=== PATIENT | male | born 1930 | race Two or more races ===

== ENCOUNTER 2018-05-10 16:45 | Emergency (ER) | payer MEDICARE, MEDICAID ==
[~2018-05-10] VITALS: Ht 165.1 cm; Wt 77.1 kg
[2018-05-10 17:00] VITALS: BP 120/73
--- NOTE | 2018-05-10 17:10 | Emergency Room Report ---
History of Present Illness General Chief Complaint: Animal Bite Source: Patient Present Illness HPI patient is an 87-year-old male with no significant past medical history here complaining of pruritic rash on his upper and lower extremities for the past several days. Patient has already been to his primary doctor and has been diagnosed with mild mosquito bites. Patient denies pain, fever, chills, SOB, all other associated symptoms. Patient has been applying OTC hydrocortisone cream with minimal improvement. Denies painful rash. Denies exposure to any allergens. Pending crystal grower action for clearance of mosquitoes in the apartment series that he lives. Also his presents with similar symptoms. Allergies: Coded Allergies: No Known Allergies (Unverified , 05/10/18) Patient History Past Medical History: see triage record Past Surgical History: none Pertinent Family History: none Immunizations: UTD Reviewed Nursing Documentation: PMH: Agreed; PSxH: Agreed Nursing Documentation-PMH Past Medical History: No Stated History Review of Systems All Other Systems: negative except mentioned in HPI Physical Exam Vital Signs Date Time Temp Pulse Resp B/P (MAP) Pulse Ox O2 Delivery O2 Flow Rate FiO2 05/10/18 16:50 97.9 71 20 120/73 98 Room Air 97.9 Sp02 EP Interpretation: reviewed, normal General Appearance: normal inspection, well appearing, no apparent distress, alert, GCS 15 Head: normocephalic Eyes: bilateral eye normal inspection, bilateral eye PERRL ENT: normal ENT inspection, hearing grossly normal, normal pharynx Neck: normal inspection, full range of motion, supple Respiratory: normal inspection, chest non-tender, lungs clear, no rhonchi, no wheezing Cardiovascular #1: normal inspection, normal peripheral pulses, no edema, no murmur Gastrointestinal: normal inspection, normal bowel sounds, non tender, soft, no mass Rectal: deferred Genitourinary: deferred Musculoskeletal: normal inspection, back normal, non-tender, no calf tenderness Neurologic: normal inspection, alert, oriented x3, responsive Psychiatric: normal inspection, judgement/insight normal, memory normal Skin: rash - multiple brown macular papular mosquito bite on both upper and lower extremities. No pus noted and no warm to touch. Lymphatic: normal inspection, no adenopathy, axilla node tender (R) Medical Decision Making PA Attestation All diagnoses and treatment plans were reviewed and discussed with my supervising physician Dr. Lucia Diagnostic Impression: Primary Impression: Mosquito bite ER Course patient is an 87-year-old male with no significant past medical history here complaining of pruritic rash on his upper and lower extremities for the past several days. Patient has already been to his primary doctor and has been diagnosed with mild mosquito bites. Patient denies pain, fever, chills, SOB, all other associated symptoms. Patient has been applying OTC hydrocortisone cream with minimal improvement. Denies painful rash. Denies exposure to any allergens. Pending crystal grower action for clearance of mosquitoes in the apartment series that he lives. Also his presents with similar symptoms. Ddx considered but are not limited to for scale eyes, spider bites, infected bites Vital signs: are WNL, pt. is afebrile H&PE are most consistent with noninfected mosquito bites ORDERS: hydrocortisone 2.5% cream and loratadine ED INTERVENTIONS: None required at this time. DISCHARGE: At this time pt. is stable for d/c to home. Will provide printed patient care instructions, and any necessary prescriptions. Care plan and follow up instructions have been discussed with the patient prior to discharge. patient advised extremity clear to house of insects if fever chills presented to the emergency Last Vital Signs Date Time Temp Pulse Resp B/P (MAP) Pulse Ox O2 Delivery O2 Flow Rate FiO2 05/10/18 17:00 97.9 20 120/73 98 Room Air 97.9 05/10/18 16:50 71 Disposition: HOME, SELF-CARE Condition: Stable Scripts Hydrocortisone (Hydrocortisone Cream 2.5%) Y Cream.appl 1 APPLIC TP BID, #40 GM Prov: Pedro Chicas 05/10/18 Loratadine/Pseudoephedrine (CLARITIN-D 12 HOUR TABLET) 1 Each Tab.er.12h 1 TAB ORAL EVERY 12 HOURS, #30 TAB Prov: Pedro Chicas 05/10/18 Patient Instructions: Insect Bite Additional Instructions: use medication as directed, if fever chills shortness of breath or pain returns to emergency room. Follow-up with a primary care provider Pedro Chicas May 10, 2018 17:10
[2018-05-10] MEDS ORDERED: CLARITIN-D 121 EAC1 ORAL (17:12)
[2018-05-10] MEDS ORDERED: HYDROCORTISONE30 G2 TP (17:12)
[2018-05-10 17:20] VITALS: BP 120/73
== END 2018-05-10 17:30 | disposition home or self-care (01) ==
LOC: EMR 17:25
DX: S80.862A Insect bite (nonvenomous), left lower leg, initial encounter (principal); S80.861A Insect bite (nonvenomous), right lower leg, initial encounter; S40.862A Insect bite (nonvenomous) of left upper arm, initial encounter; S40.861A Insect bite (nonvenomous) of right upper arm, initial encounter; W57.XXXA Bitten or stung by nonvenomous insect and other nonvenomous arthropods, initial encounter; Y93.9 Activity, unspecified; Y92.9 Unspecified place or not applicable
CPT/HCPCS: 99283